=== PATIENT | male | born 1955 | race Hispanic/Latino ===

== ENCOUNTER → 2019-12-08 | Outpatient (CLI) | payer OTHER ==
--- NOTE | 2019-12-08 20:32 | Diagnostic Imaging Report ---
Hepatobiliary Scan with Gallbladder Ejection Fraction Reason for exam: Calculus of gallbladder; RUQ pain Technique: Following intravenous administration of 6.6 millicuries of Tc-99m mebrofenin, dynamic images of the abdomen in the anterior projection were obtained through 46 minutes. Sincalide (CCK analog) 1.9 micrograms was administered intravenously over 30 minutes with additional imaging for determination of gallbladder ejection fraction. Discussion: Perfusion of the liver is normal. Extraction of tracer by the liver parenchyma is normal. Tracer appears promptly within the biliary tract. The gallbladder begins to fill by 40 minutes post injection of tracer and fills adequately. Tracer is seen in the small bowel by 10 minutes. The gallbladder ejection fraction with sincalide is 1% (normal greater than 40%). Impression: 1. Filling of the gallbladder excludes acute cystic duct obstruction/acute cholecystitis. 2. The decreased gallbladder ejection fraction of 1% supports the clinical diagnosis of chronic cholecystitis/gallbladder dyskinesia. Signed by: Dr. Agnes Cox M.D. on 12/08/2019 8:28 PM
== END ==
LOC: NM 13:15
PROVIDERS: ATTEND Internal Medicine
DX: K80.20 Calculus of gallbladder without cholecystitis without obstruction (principal); R14.0 Abdominal distension (gaseous)
CPT/HCPCS: 78227; A9537

== ENCOUNTER 2020-03-30 17:43 | Emergency (ER) | payer OTHER ==
[~2020-03-30] VITALS: Ht 170.2 cm; Wt 90.7 kg
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
--- NOTE | 2020-03-30 19:33 | Diagnostic Imaging Report ---
SHOULDER RIGHT COMPLETE - 3 views HISTORY: Pain. COMPARISON: None available. FINDINGS: Bones: No acute displaced fracture. Osseous alignment is within normal limits. Joints: The joint spaces are well-maintained. Soft tissues: The soft tissues appear unremarkable. IMPRESSION: No acute radiographic abnormality. Signed by: Sam Traylor MD on 03/30/2020 7:30 PM
--- NOTE | 2020-03-30 19:33 | Diagnostic Imaging Report ---
PELVIS AP 1-2 VIEWS - 3 views HISTORY: Pain. COMPARISON: None available. FINDINGS: Bones: No acute displaced fracture. Osseous alignment is within normal limits. Joints: The joint spaces are well-maintained. Soft tissues: The soft tissues appear unremarkable. IMPRESSION: No acute radiographic abnormality. Signed by: Sam Traylor MD on 03/30/2020 7:30 PM
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
--- NOTE | 2020-03-30 19:56 | Diagnostic Imaging Report ---
CT CERVICAL SPINE WO HISTORY: Trauma COMPARISON: None. TECHNIQUE: CT of the cervical spine without contrast. Sagittal and coronal reformations were created. One or more of the following dose reduction techniques were used: Automated exposure control, adjustment of the mA and/or kV according to patient size, and/or utilization of iterative reconstruction technique. FINDINGS: Streak artifacts obscure some details. Cervical lordosis is straightened. There is no scoliosis or subluxation. No definite acute fracture or compression deformity is seen. The craniocervical junction is intact. No gross spinal canal masses are seen. The paravertebral and paraspinal soft tissues are unremarkable. Mild to moderate multilevel spondylosis is most prominent at C5-C6. Mild atlantoaxial arthrosis is present as well. Azygos lobe is present. There are mild to moderate bilateral carotid bulb calcifications. IMPRESSION: 1. No acute osseous abnormalities. 2. Mild to moderate multilevel spondylosis, most prominent at C5-C6. Signed by: Dr. Yang Morejon M.D. on 03/30/2020 7:53 PM
[2020-03-30] MEDS ORDERED: HYDROCODONE/APAP 10MG-325MG TAB PO ONE (20:00)
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
== END 2020-03-30 20:35 | disposition home or self-care (01) ==
LOC: ER 18:30
DX: M54.9 Dorsalgia, unspecified (principal); R07.81 Pleurodynia; V23.4XXA Motorcycle driver injured in collision with car, pick-up truck or van in traffic accident, initial encounter; Y92.488 Other paved roadways as the place of occurrence of the external cause; F17.210 Nicotine dependence, cigarettes, uncomplicated
CPT/HCPCS: 70450; 71045; 72125; 72170; 99283